=== PATIENT | male | born 1965 | race Caucasian/White ===

== ENCOUNTER 2023-05-14 02:57 | Outpatient (RCR) | payer OTHER, SELFPAY ==
[2023-04-23] MEDS: Heparin 500 UNITS/5 ML SYRINGE (08:07)
[2023-04-23] MEDS: Normal Saline Flush 10 ML SYR IVP (08:08)
[2023-04-23 08:27] LABS: Abs Immature Grans 0.05 10^3/uL (0.0-0.06); Absolute Basophil Count 0.02 10^3/uL (0.0-0.2); Absolute Eosinophil Count 0.08 10^3/uL (0.0-0.7); Absolute Monocyte Count 1.14 10^3/uL (0.1-0.8); Basophils % 0.2; Eosinophils % 0.7; HGB 15.2 g/dL (13.5-17.5); Immature Grans % 0.5; Lymphocytes % 13.1; MCH 32.1 pg (27.0-33.0); MCHC 33.8 % (32.0-36.0); MCV 95 fL (80-95); MPV 9.8 fL (8.0-11.0); Monocytes % 10.5; Platelet Count 362 10^3/uL (130-400); RBC 4.73 10^6/uL (4.36-5.78); RDW 11.8 % (11.8-14.1); RDW-SD 41.1 fL; WBC 10.88 10^3/uL (4.4-10.8)
[2023-04-23 08:29] LABS: Absolute Lymphocyte Count 1.43 10^3/uL (1.2-3.4); Absolute Neutrophil Count 8.16 10^3/uL (1.2-6.7)
[2023-04-23 08:45] LABS: ALT 71 U/L (16-63); AST 32 U/L (15-37); Albumin 3.5 g/dL (3.4-5.0); Alkaline Phosphatase 81 U/L (46-116); Anion Gap 8.8 mmol/L (3-11); BUN 18 mg/dL (7-18); Bilirubin, Total 0.6 mg/dL (0.2-1.0); CO2 30.2 mmol/L (21.0-32.0); CREATININE 0.8 mg/dL (0.70-1.30); Calcium 9.7 mg/dL (8.5-10.1); Chloride 98 mmol/L (98-107); Estimated GFR 101.95 (mL/min/1.73m2); Glucose 99 mg/dL (74-106); Magnesium 2.2 mg/dL (1.8-2.4); Potassium 3.9 mmol/L (3.5-5.1); Sodium 137 mmol/L (136-145); Total Protein 7.6 g/dL (6.4-8.2)
[2023-04-30] MEDS: Normal Saline Flush 10 ML SYR IVP (13:28)
[2023-04-30] MEDS: Heparin 500 UNITS/5 ML SYRINGE IV (13:28)
[2023-04-30 14:03] LABS: Abs Immature Grans 0.04 10^3/uL (0.0-0.06); Absolute Basophil Count 0.03 10^3/uL (0.0-0.2); Absolute Eosinophil Count 0.11 10^3/uL (0.0-0.7); Absolute Lymphocyte Count 1.01 10^3/uL (1.2-3.4); Absolute Monocyte Count 0.93 10^3/uL (0.1-0.8); Absolute Neutrophil Count 6.63 10^3/uL (1.2-6.7); Basophils % 0.3; Eosinophils % 1.3; HCT 39.3 % (40.0-50.0); HGB 12.9 g/dL (13.5-17.5); Immature Grans % 0.5; Lymphocytes % 11.5; MCH 31.5 pg (27.0-33.0); MCHC 32.8 % (32.0-36.0); MCV 96 fL (80-95); MPV 9.6 fL (8.0-11.0); Monocytes % 10.6; Neutrophils % 75.8; Platelet Count 308 10^3/uL (130-400); RDW 11.9 % (11.8-14.1); RDW-SD 41.4 fL; WBC 8.75 10^3/uL (4.4-10.8)
[2023-04-30 14:19] LABS: ALT 76 U/L (16-63); AST 22 U/L (15-37); Albumin 3.1 g/dL (3.4-5.0); Alkaline Phosphatase 88 U/L (46-116); Anion Gap 6.7 mmol/L (3-11); BUN 23 mg/dL (7-18); Bilirubin, Total 0.4 mg/dL (0.2-1.0); CO2 28.3 mmol/L (21.0-32.0); CREATININE 0.8 mg/dL (0.70-1.30); Calcium 9.4 mg/dL (8.5-10.1); Chloride 98 mmol/L (98-107); Estimated GFR 101.95 (mL/min/1.73m2); Glucose 110 mg/dL (74-106); Magnesium 2.1 mg/dL (1.8-2.4); Potassium 4.2 mmol/L (3.5-5.1); Sodium 133 mmol/L (136-145); Total Protein 7.1 g/dL (6.4-8.2)
[2023-05-07] MEDS: Normal Saline Flush 10 ML SYR IVP (13:26)
[2023-05-07] MEDS: Heparin 500 UNITS/5 ML SYRINGE IV (13:27)
[2023-05-07 13:41] LABS: Abs Immature Grans 0.03 10^3/uL (0.0-0.06); Absolute Basophil Count 0.02 10^3/uL (0.0-0.2); Absolute Eosinophil Count 0.05 10^3/uL (0.0-0.7); Absolute Lymphocyte Count 0.62 10^3/uL (1.2-3.4); Absolute Monocyte Count 0.63 10^3/uL (0.1-0.8); Absolute Neutrophil Count 4.97 10^3/uL (1.2-6.7); Basophils % 0.3; Eosinophils % 0.8; HCT 36.8 % (40.0-50.0); HGB 12.2 g/dL (13.5-17.5); Immature Grans % 0.5; Lymphocytes % 9.8; MCH 31.6 pg (27.0-33.0); MCHC 33.2 % (32.0-36.0); MCV 95 fL (80-95); MPV 9.2 fL (8.0-11.0); Neutrophils % 78.6; Platelet Count 278 10^3/uL (130-400); RBC 3.86 10^6/uL (4.36-5.78); RDW 11.9 % (11.8-14.1); RDW-SD 41.2 fL; WBC 6.32 10^3/uL (4.4-10.8)
[2023-05-07 14:44] LABS: ALT 51 U/L (16-63); AST 16 U/L (15-37); Alkaline Phosphatase 85 U/L (46-116); Anion Gap 4.6 mmol/L (3-11); BUN 23 mg/dL (7-18); Bilirubin, Total 0.3 mg/dL (0.2-1.0); CO2 29.4 mmol/L (21.0-32.0); CREATININE 0.8 mg/dL (0.70-1.30); Calcium 9.5 mg/dL (8.5-10.1); Chloride 100 mmol/L (98-107); Estimated GFR 101.95 (mL/min/1.73m2); Glucose 151 mg/dL (74-106); Magnesium 2.1 mg/dL (1.8-2.4); Potassium 4.1 mmol/L (3.5-5.1); Sodium 134 mmol/L (136-145); Total Protein 7.2 g/dL (6.4-8.2)
[2023-05-14] MEDS: Heparin 500 UNITS/5 ML SYRINGE IV (07:52)
[2023-05-14] MEDS: Normal Saline Flush 10 ML SYR IVP (07:52)
[2023-05-14 07:59] LABS: Abs Immature Grans 0.01 10^3/uL (0.0-0.06); Absolute Basophil Count 0.02 10^3/uL (0.0-0.2); Absolute Eosinophil Count 0.08 10^3/uL (0.0-0.7); Absolute Lymphocyte Count 0.55 10^3/uL (1.2-3.4); Absolute Monocyte Count 0.49 10^3/uL (0.1-0.8); Basophils % 0.4; Eosinophils % 1.5; HCT 35.1 % (40.0-50.0); HGB 11.7 g/dL (13.5-17.5); Immature Grans % 0.2; Lymphocytes % 10.1; MCH 32.3 pg (27.0-33.0); MCHC 33.3 % (32.0-36.0); MCV 97 fL (80-95); MPV 8.9 fL (8.0-11.0); Neutrophils % 78.8; Platelet Count 219 10^3/uL (130-400); RBC 3.62 10^6/uL (4.36-5.78); RDW 12.3 % (11.8-14.1); RDW-SD 42.8 fL; WBC 5.45 10^3/uL (4.4-10.8)
[2023-05-14 08:12] LABS: ALT 36 U/L (16-63); AST 13 U/L (15-37); Alkaline Phosphatase 81 U/L (46-116); Anion Gap 9.4 mmol/L (3-11); BUN 23 mg/dL (7-18); Bilirubin, Total 0.4 mg/dL (0.2-1.0); CO2 29.6 mmol/L (21.0-32.0); CREATININE 0.8 mg/dL (0.70-1.30); Calcium 9.4 mg/dL (8.5-10.1); Chloride 103 mmol/L (98-107); Estimated GFR 101.95 (mL/min/1.73m2); Glucose 113 mg/dL (74-106); Sodium 142 mmol/L (136-145); Total Protein 6.9 g/dL (6.4-8.2)
== END 2023-05-15 23:59 | disposition home or self-care (01) ==
LOC: INF 02:57
PROVIDERS: Visit Provider Internal Medicine Hematology & Oncology
DX: C76.0 Malignant neoplasm of head, face and neck (principal); Z45.2 Encounter for adjustment and management of vascular access device
CPT/HCPCS: 36591; 80053; 83735; 85025

== ENCOUNTER 2023-06-13 02:57 | Outpatient (RCR) | payer OTHER, SELFPAY ==
[2023-05-21 08:02] LABS: Abs Immature Grans 0.01 10^3/uL (0.0-0.06); Absolute Basophil Count 0.02 10^3/uL (0.0-0.2); Absolute Eosinophil Count 0.06 10^3/uL (0.0-0.7); Absolute Lymphocyte Count 0.43 10^3/uL (1.2-3.4); Absolute Monocyte Count 0.37 10^3/uL (0.1-0.8); Absolute Neutrophil Count 3.47 10^3/uL (1.2-6.7); Basophils % 0.5; Eosinophils % 1.4; HCT 33.5 % (40.0-50.0); HGB 11.4 g/dL (13.5-17.5); Immature Grans % 0.2; Lymphocytes % 9.9; MCH 32.9 pg (27.0-33.0); MCV 97 fL (80-95); MPV 8.9 fL (8.0-11.0); Monocytes % 8.5; Neutrophils % 79.5; Platelet Count 250 10^3/uL (130-400); RBC 3.46 10^6/uL (4.36-5.78); RDW 12.9 % (11.8-14.1); RDW-SD 43.5 fL; WBC 4.36 10^3/uL (4.4-10.8)
[2023-05-21 08:22] LABS: ALT 34 U/L (16-63); AST 13 U/L (15-37); Albumin 2.8 g/dL (3.4-5.0); Alkaline Phosphatase 70 U/L (46-116); BUN 22 mg/dL (7-18); Bilirubin, Total 0.3 mg/dL (0.2-1.0); CREATININE 0.7 mg/dL (0.70-1.30); Calcium 8.8 mg/dL (8.5-10.1); Chloride 103 mmol/L (98-107); Estimated GFR 106.14 (mL/min/1.73m2); Glucose 122 mg/dL (74-106); Magnesium 1.8 mg/dL (1.8-2.4); Potassium 3.7 mmol/L (3.5-5.1); Sodium 138 mmol/L (136-145); Total Protein 6.5 g/dL (6.4-8.2)
[2023-05-21] MEDS: Heparin 500 UNITS/5 ML SYRINGE IV (08:32)
[2023-05-21] MEDS: Normal Saline Flush 10 ML SYR IVP (08:33)
[2023-05-28] MEDS: Normal Saline Flush 10 ML SYR IVP (08:44)
[2023-05-28] MEDS: Heparin 500 UNITS/5 ML SYRINGE IV (08:45)
[2023-05-28 08:55] LABS: Abs Immature Grans 0.01 10^3/uL (0.0-0.06); Absolute Basophil Count 0.02 10^3/uL (0.0-0.2); Absolute Eosinophil Count 0.04 10^3/uL (0.0-0.7); Absolute Lymphocyte Count 0.39 10^3/uL (1.2-3.4); Absolute Neutrophil Count 2.19 10^3/uL (1.2-6.7); Basophils % 0.7; Eosinophils % 1.4; HCT 30.8 % (40.0-50.0); HGB 10.3 g/dL (13.5-17.5); Immature Grans % 0.3; Lymphocytes % 13.2; MCH 32.8 pg (27.0-33.0); MCHC 33.4 % (32.0-36.0); MCV 98 fL (80-95); MPV 8.4 fL (8.0-11.0); Monocytes % 10.2; Neutrophils % 74.2; Platelet Count 210 10^3/uL (130-400); RBC 3.14 10^6/uL (4.36-5.78); RDW 13.8 % (11.8-14.1); RDW-SD 46.8 fL; WBC 2.95 10^3/uL (4.4-10.8)
[2023-05-28 09:08] LABS: ALT 32 U/L (16-63); AST 15 U/L (15-37); Alkaline Phosphatase 79 U/L (46-116); Anion Gap 6.4 mmol/L (3-11); BUN 23 mg/dL (7-18); Bilirubin, Total 0.3 mg/dL (0.2-1.0); CO2 30.6 mmol/L (21.0-32.0); CREATININE 0.7 mg/dL (0.70-1.30); Calcium 9.2 mg/dL (8.5-10.1); Chloride 102 mmol/L (98-107); Estimated GFR 105.49 (mL/min/1.73m2); Glucose 125 mg/dL (74-106); Magnesium 1.8 mg/dL (1.8-2.4); Potassium 4.3 mmol/L (3.5-5.1); Sodium 139 mmol/L (136-145); Total Protein 6.8 g/dL (6.4-8.2)
[2023-06-13] MEDS: Heparin 500 UNITS/5 ML SYRINGE IV (08:05)
[2023-06-13] MEDS: Normal Saline Flush 10 ML SYR IVP (08:05)
[2023-06-13 08:59] LABS: Abs Immature Grans 0.03 10^3/uL (0.0-0.06); Absolute Basophil Count 0.03 10^3/uL (0.0-0.2); Absolute Eosinophil Count 0.02 10^3/uL (0.0-0.7); Absolute Lymphocyte Count 0.44 10^3/uL (1.2-3.4); Absolute Monocyte Count 0.58 10^3/uL (0.1-0.8); Absolute Neutrophil Count 3.94 10^3/uL (1.2-6.7); Basophils % 0.6; Eosinophils % 0.4; HGB 9.7 g/dL (13.5-17.5); Immature Grans % 0.6; Lymphocytes % 8.7; MCH 33.9 pg (27.0-33.0); MCHC 33.4 % (32.0-36.0); MCV 101 fL (80-95); Monocytes % 11.5; Neutrophils % 78.2; Platelet Count 263 10^3/uL (130-400); RBC 2.86 10^6/uL (4.36-5.78); RDW 16.8 % (11.8-14.1); RDW-SD 60.2 fL; WBC 5.04 10^3/uL (4.4-10.8)
[2023-06-13 09:23] LABS: ALT 18 U/L (16-63); AST 11 U/L (15-37); Albumin 3.1 g/dL (3.4-5.0); Alkaline Phosphatase 75 U/L (46-116); Anion Gap 6.8 mmol/L (3-11); BUN 25 mg/dL (7-18); Bilirubin, Total 0.2 mg/dL (0.2-1.0); CO2 29.2 mmol/L (21.0-32.0); CREATININE 0.7 mg/dL (0.70-1.30); Calcium 9.4 mg/dL (8.5-10.1); Chloride 104 mmol/L (98-107); Estimated GFR 105.49 (mL/min/1.73m2); Glucose 136 mg/dL (74-106); Sodium 140 mmol/L (136-145); TSH 1.76 uIU/mL (0.36-3.74); Total Protein 6.9 g/dL (6.4-8.2)
== END 2023-06-14 23:59 | disposition home or self-care (01) ==
LOC: INF 02:57
PROVIDERS: Visit Provider Internal Medicine Hematology & Oncology
DX: C76.0 Malignant neoplasm of head, face and neck (principal); Z45.2 Encounter for adjustment and management of vascular access device
CPT/HCPCS: 36591; 80053; 83735; 84443; 85025

== ENCOUNTER → 2023-06-29 00:42 | Outpatient (CLI) | payer OTHER, SELFPAY ==
[2023-06-29] MEDS: Barium Sulfate 700 MG TAB PO (09:25)
[2023-06-29] MEDS: Barium Sulfate Oral Paste 40% W/V 230 ML TUBE PO (09:26)
[2023-06-29] MEDS: Barium Sulfate 81% w/w for Oral Suspension 148 GM BTL PO (09:27)
[2023-06-29] MEDS: Barium Sulfate 40% W/V 240 ML BTL PO (09:46)
--- NOTE | 2023-06-29 09:50 | DI.RAD_ITS ---
Exam(s) RF MODIFIED SPEECH BA SWALLOW TECHNIQUE: Modified barium swallow was performed in conjunction with speech pathology. CONTRAST MATERIAL: Multiple consistencies of oral barium contrast were administered. COMPARISON: No exams were available for comparison FINDINGS: Note that this is not a dedicated esophagram, distal esophagus not evaluated. There was laryngeal penetration with thin and thick liquid. No richie aspiration. Mild vallecular re sidue. Speech pathology report to follow. IMPRESSION: Laryngeal penetration with thin and thick liquid. RADIATION DOSE DELIVERED: norbert Yang=20.5 mGy
--- NOTE | 2023-06-29 09:53 | ST.MBS ---
Date of Service Date of service: 06/29/23 Time of Service: 09:53 Modified Barium Swallow Study Findings: Video fluoroscopic Swallowing Evaluation (VFSE) / Modified Barium Swallow Study (MBSS) Speech Language Pathology Report Patient referred for VFSE/MBSS from Dr. Pierre given recently completed chemo-radiation treatment for oropharyngeal cancer. 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 He had a feeding tube placed at the beginning of treatment and continues to use this. Toward the end of his treatment he was largely reliant on the tube feeds for his nutrition secondary to taste changes, pain, and difficulty swallowing but did continue to take liquids by mouth. It has been several weeks since he finished his last treatment and his mucositis symptoms have started to improve. Continues with dry mouth. He reports primarily struggling at this time with solid foods, feeling things don't go down all the way and need to be coughed up. Continues with notable anxiety surrounding solid PO intake. IMPRESSIONS: Donnie presents with overall mild or mild-moderate dysphagia at this time, characterized most significantly by pharyngeal residue (vallecular>pyriform) due to reduced vs absent posterior pharyngeal wall stripping wave and to a lesser degree, reduced tongue base retraction and mild reduced epiglottic inversion. Also noting abnormalities at the level of the CP causing reduced flow, especially for solid textures, through the UES. He remains with fairly prompt pharyngeal initiation and good hyo-laryngeal movement. Airway protection is largely adequate with strategies in place for thin liquids and puree/solids. No aspiration occurred. Only scant/mild penetration with larger volumes resulting in trace laryngeal residue which does not descend to the level of vocal cords and can be cleared with occasional throat clear. Barriers to full PO intake at this time include low efficiency with more dense textures, and patient discomfort, anxiety, and fatigue with PO intake. Patient appears to be at low risk for potential aspiration PNA and/or pulmonary compromise and mild risk for malnutrition, low risk for dehydration. Diet modification is indicated; non-oral nutrition is indicated, though likely to return to full PO intake without significant delay. Swallow prognosis is good-fair given: Positive prognostic factors: Age, Severity, Time since onset, Motivation, Family/caregiver support, Cognitive status, Negative prognostic factors: Relative dose of Chemotherapy and/or radiation treatment Ancillary tests: May consider EGD/Upper GI Endoscopy if patient continues to experience significant issues over the next several months. RECOMMENDATIONS: Diet Texture Recommendation:? IDDSI LEVEL SOLIDS 6-Soft & Bite-Sized Solids with supplemental enterel feeding for now LIQUIDS 0-Thin Liquids Please see further details at?[email or web address] MEDICATIONS Whole with 0-Thin Liquids or 4-Puree Diet texture modification is per patient's preference; please adjust diet textures at patient's discretion & collaboration with care team. Do not alter medications (e.g., cut)? without advice from your MD or pharmacist. Risk Management Strategies:? Behavioral reflux precautions, including upright position during + 90 mins after meals. Small bites, approx [id number] Very small sips, approx 5mL / teaspoon Alternate solids/liquids as able Multiple swallows per bolus to encourage clearance of pharyngeal stasis/residue Control risk factors for aspiration pneumonia via (a) thorough oral hygiene & (b) maintaining physical mobility as tolerated PLAN: Therapy: Recommend subsequent outpatient session with [facility] to review results of today's exam and develop treatment plan as appropriate (patient is followed via [facility] through [facility] [place]). Follow-up exam: Repeat MBSS May be indicated upon return to [place] in several months pending progress at that point. ----- OBJECTIVE Videofluoroscopic Swallow Evaluation (VFSE/MBSS) was conducted in the lateral projection by Speech-Language Pathologist, in collaboration with Radiologist, to evaluate oropharyngeal swallow function. Anatomic view under fluoroscopy: PO Barium Contrast Trials Oral barium water-soluble contrast was administered as follows: IDDSI Level 0 Varibar thin liquid (40% w/v) IDDSI Level 2 Varibar nectar thick/mildly thick liquid (40% w/v) IDDSI Level 4 Varibar pudding/pureed/extremely thick (40% w/v) IDDSI Level 7 Regular Solid: 1/2 dagoberto cracker coated in 3 mL Varibar pudding 13 mm barium tablet taken with Thin Liquids. MBSImP Component Scores: COMPONENT Scale SCORE 1 Lip closure (0-4) 0 Resulted in no labial escape 2 Hold Position (0-3) 0 Maintained a cohesive bolus between tongue to palatal seal 3 Bolus Preparation (0-4) 0 Resulted in timely and efficient chewing and mashing 4 Bolus Transport (0-4) 0 Was with brisk tongue motion 5 Oral Residue (0-4) 2 Was a collection on oral structures 6 Swallow Initiation (0-4) 1 Occurred when the bolus head was in valleculae 7 Soft Palate Elevation (0-4) 0 Resulted in no bolus between soft palate and the pharyngeal wall 8 Laryngeal Elevation (0-3) 1 Was decreased with partial superior movement of thyroid cartilage/partial approximation of arytenoids to epiglottic petiole 9 Anterior Hyoid Motion (0-2) 0 Demonstrated complete anterior movement 10 Epiglottic Movement (0-2) 1 Resulted in partial inversion 11 Laryngeal Closure (0-2) 1 Was incomplete with narrow a column of air /contrast in laryngeal vestibule 12 Pharyngeal Stripping Wave (0-2) 2 Was absent 13 Pharyngeal Contraction (0-3) NA 14 PES Opening (0-3) 1 Demonstrated partial distension/partial duration, with partial obstruction of flow 15 Tongue Base Retraction (0-4) 2 Allowed a narrow column of contrast or air between the retracted tongue base and the posterior pharyngeal wall 16 Pharyngeal Residue (0-4) 2 Was a collection of residue within or on pharyngeal structures 17 Esophageal Clearance (0-4) NA Results: COMPONENT Scale SCORE 1 Oral Score (0-18) 3 2 Pharyngeal Score (0-29) 10 3 Esophageal Score (0-4) 0 Penetration-Aspiration Scale: COMPONENT Scale SCORE 1 Thin liquid (1-8) 3 Contrast entered the airway, remained above the vocal folds, and was not ejected from the airway. 2 Mexican [place] thick (1-8) 2 Contrast entered the airway, remained above the vocal folds, and was ejected from the airway. 3 Honey thick (1-8) NA 4 Pudding thick (1-8) 1 Contrast did not enter the airway 5 Cookie (1-8) 1 Contrast did not enter the airway Functional Oral Intake Scale: COMPONENT Scale SCORE 1 Pre-Study (1-7) 3 Tube supplements with consistent oral intake 2 Post-Study (1-7) 3 Tube supplements with consistent oral intake DIGEST: COMPONENT Scale SCORE 1 Thin Max PAS (1-8) 3 Contrast entered the airway, remained above the vocal folds, and was not ejected from the airway. 2 Mexican [place] Max PAS (1-8) 2 Contrast entered the airway, remained above the vocal folds, and was ejected from the airway. 3 Honey Max PAS (1-8) NA 4 Liquid Max PAS (1-8) 3 Maximum PAS Score over all liquid trials 5 Liquid Max Residue (0-3) 0 below 10% 6 Pudding Max PAS (1-8) 1 Contrast did not enter the airway 7 Pudding Max Residue (0-3) 1 10 - 49% 8 Cracker Max PAS (1-8) 1 Contrast did not enter the airway 9 Cracker Max Residue (0-3) 2 50 - 90% 10 Frequency if PAS >= 3 (0-3) 0 Single event 11 Amount if PAS >= 5 (0-1) 0 Not gross Results: COMPONENT Scale SCORE 1 SAFETY GRADE (0-4) 0 Safety grade for swallowing based on patterns of aspiration or laryngeal penetration 2 EFFICIENCY GRADE (0-4) 2 Efficiency grade of swallowing based on patterns of pharyngeal residue 3 DIGEST (0-4) 1 Severity grade of pharyngeal dysphagia: 0 - Normal, 1 - Mild, 2 - Moderate, 3 - Severe, 4 - Life threatening 4 Max Exam PAS (1-8) 3 Maximum PAS Score over all bolus trials 5 Max Exam Residue (0-3) 2 Maximum Exam Residue over all bolus trials Trialed Compensatory Strategies & Outcome: Maneuvers Successful (+) Unsuccessful (-) Postures Successful (+) Unsuccessful (-) 3 second Preparatory Set? ?+/- Chin Tuck Posture? ? Cough? ? Posterior Head tilt? Reflexive? Cued? Throat Clear? ? Head Tilt to? Reflexive? Left? Cued? ?+ ? Right? ? Saliva swallow? ?+ Head Turn/Rotate to? ? Supraglottic Swallow ? Left? ? Super-supraglottic Swallow? Right? ? Bolus Modifications Successful (+) Unsuccessful (-) Delivery/Alternating Consistencies ? Follow with Liquid Wash + ? Follow with Solid Bolus? Delivery/Via Straw? ? Reduced Volume? ?+ Reduced Rate of Intake? ?+ Increased Viscosity? ?+/- Other:?? ? Thank you for allowing us to take part in this patient's care. Please feel free to contact the [facility] Speech Language Pathology Department with any questions/concerns. Coding CPT Codes MOTION FLUOROSCOPY/SWALLOW - [id number] ([id number])
== END ==
PROVIDERS: Visit Provider Preventive Medicine Undersea and Hyperbaric Medicine
DX: C10.9 Malignant neoplasm of oropharynx, unspecified (principal); R13.13 Dysphagia, pharyngeal phase
CPT/HCPCS: 92526; 92611; 74221

== ENCOUNTER 2023-12-03 09:22 | Outpatient (RCR) | payer OTHER, SELFPAY ==
[2023-12-03 10:01] LABS: Abs Immature Grans 0.02 10^3/uL (0.0-0.06); Absolute Basophil Count 0.03 10^3/uL (0.0-0.2); Absolute Eosinophil Count 0.08 10^3/uL (0.0-0.7); Absolute Lymphocyte Count 0.85 10^3/uL (1.2-3.4); Absolute Monocyte Count 0.37 10^3/uL (0.1-0.8); Basophils % 0.7 %; Eosinophils % 1.8 %; HGB 13.6 g/dL (13.5-17.5); Immature Grans % 0.5 %; Lymphocytes % 19.5 %; MCH 32.9 pg (27.0-33.0); MCHC 32.4 % (32.0-36.0); MCV 102 fL (80-95); MPV 9.4 fL (8.0-11.0); Monocytes % 8.5 %; Platelet Count 198 10^3/uL (130-400); RBC 4.13 10^6/uL (4.36-5.78); RDW 13.8 % (11.8-14.1); RDW-SD 52.4 fL; WBC 4.35 10^3/uL (4.4-10.8)
[2023-12-03 10:17] LABS: ALT 22 U/L (16-63); AST 13 U/L (15-37); Albumin 3.8 g/dL (3.4-5.0); Alkaline Phosphatase 50 U/L (46-116); Anion Gap 4.6 mmol/L (3-11); BUN 12 mg/dL (7-18); Bilirubin, Total 0.7 mg/dL (0.2-1.0); CO2 32.4 mmol/L (21.0-32.0); CREATININE 0.9 mg/dL (0.70-1.30); Calcium 9.2 mg/dL (8.5-10.1); Chloride 108 mmol/L (98-107); Estimated GFR 97.78 (mL/min/1.73m2); Glucose 79 mg/dL (74-106); Magnesium 2.1 mg/dL (1.8-2.4); Potassium 3.8 mmol/L (3.5-5.1); Sodium 145 mmol/L (136-145)
[2023-12-03 11:21] LABS: TSH 13.49 uIU/Ml (0.36-3.74)
== END 2023-12-14 23:59 | disposition home or self-care (01) ==
LOC: INF 09:22
PROVIDERS: Internal Medicine Hematology & Oncology; Visit Provider Nurse Practitioner
DX: C76.0 Malignant neoplasm of head, face and neck (principal); C10.9 Malignant neoplasm of oropharynx, unspecified
CPT/HCPCS: 36415; 80053; 83735; 84443; 85025

== ENCOUNTER 2024-06-09 01:53 | Outpatient (RCR) | payer OTHER, SELFPAY ==
[2024-05-19] MEDS: Normal Saline Flush 10 ML SYR IVP (08:48)
[2024-05-19 09:24] LABS: Abs Immature Grans 0.01 10^3/uL (0.0-0.06); Absolute Basophil Count 0.04 10^3/uL (0.0-0.2); Absolute Lymphocyte Count 0.64 10^3/uL (1.2-3.4); Absolute Monocyte Count 0.39 10^3/uL (0.1-0.8); Absolute Neutrophil Count 3.24 10^3/uL (1.2-6.7); Basophils % 0.9 %; Eosinophils % 2.3 %; HCT 41.4 % (40.0-50.0); HGB 13.6 g/dL (13.5-17.5); Immature Grans % 0.2 %; Lymphocytes % 14.5 %; MCH 32.6 pg (27.0-33.0); MCHC 32.9 % (32.0-36.0); MCV 99 fL (80-95); MPV 9.7 fL (8.0-11.0); Monocytes % 8.8 %; Neutrophils % 73.3 %; Platelet Count 176 10^3/uL (130-400); RBC 4.17 10^6/uL (4.36-5.78); RDW 12.8 % (11.8-14.1); RDW-SD 47.1 fL; WBC 4.42 10^3/uL (4.4-10.8)
[2024-05-19 09:56] LABS: ALT 20 U/L (16-63); AST 14 U/L (15-37); Albumin 3.8 g/dL (3.4-5.0); Alkaline Phosphatase 57 U/L (46-116); Anion Gap 8.9 mmol/L (3-11); BUN 19 mg/dL (7-18); Bilirubin, Total 0.68 mg/dL (0.2-1.0); CO2 28.1 mmol/L (21.0-32.0); CREATININE 0.9 mg/dL (0.70-1.30); Calcium 9.3 mg/dL (8.5-10.1); Chloride 109 mmol/L (98-107); Estimated GFR 97.78 (mL/min/1.73m2); Glucose 93 mg/dL (74-106); Potassium 4.1 mmol/L (3.5-5.1); Sodium 146 mmol/L (136-145); TSH 10.37 uIU/mL (0.36-3.74); Total Protein 7.2 g/dL (6.4-8.2)
[2024-05-19 10:15] LABS: FREE T4 0.74 ng/dL (0.76-1.46)
[2024-05-24] MEDS: Normal Saline Flush 10 ML SYR IVP (12:40)
[2024-05-26] MEDS: Normal Saline Flush 10 ML SYR IVP (10:04)
[2024-05-26 10:08] LABS: Abs Immature Grans 0.02 10^3/uL (0.0-0.06); Absolute Basophil Count 0.03 10^3/uL (0.0-0.2); Absolute Eosinophil Count 0.06 10^3/uL (0.0-0.7); Absolute Lymphocyte Count 0.57 10^3/uL (1.2-3.4); Absolute Monocyte Count 0.41 10^3/uL (0.1-0.8); Absolute Neutrophil Count 4.62 10^3/uL (1.2-6.7); Basophils % 0.5 %; Eosinophils % 1.1 %; HCT 40.7 % (40.0-50.0); HGB 13.6 g/dL (13.5-17.5); Immature Grans % 0.4 %; MCH 32.4 pg (27.0-33.0); MCHC 33.4 % (32.0-36.0); MCV 97 fL (80-95); MPV 9.3 fL (8.0-11.0); Monocytes % 7.2 %; Neutrophils % 80.8 %; Platelet Count 176 10^3/uL (130-400); RDW 12.2 % (11.8-14.1); RDW-SD 43.8 fL; WBC 5.71 10^3/uL (4.4-10.8)
[2024-05-26 11:08] LABS: ALT 20 U/L (16-63); AST 13 U/L (15-37); Albumin 3.8 g/dL (3.4-5.0); Alkaline Phosphatase 60 U/L (46-116); Anion Gap 8.8 mmol/L (3-11); BUN 19 mg/dL (7-18); Bilirubin, Total 0.75 mg/dL (0.2-1.0); CO2 27.2 mmol/L (21.0-32.0); CREATININE 0.9 mg/dL (0.70-1.30); Calcium 9.2 mg/dL (8.5-10.1); Chloride 106 mmol/L (98-107); Estimated GFR 97.17 (mL/min/1.73m2); FREE T4 0.84 ng/dL (0.76-1.46); Glucose 97 mg/dL (74-106); Potassium 4.1 mmol/L (3.5-5.1); Sodium 142 mmol/L (136-145); TSH 8.52 uIU/mL (0.36-3.74); Total Protein 7.4 g/dL (6.4-8.2)
[2024-06-09 09:06] LABS: Abs Immature Grans 0.02 10^3/uL (0.0-0.06); Absolute Basophil Count 0.03 10^3/uL (0.0-0.2); Absolute Eosinophil Count 0.07 10^3/uL (0.0-0.7); Absolute Monocyte Count 0.39 10^3/uL (0.1-0.8); Absolute Neutrophil Count 2.18 10^3/uL (1.2-6.7); Basophils % 0.9 %; HCT 39.2 % (40.0-50.0); HGB 12.7 g/dL (13.5-17.5); Immature Grans % 0.6 %; Lymphocytes % 22.9 %; MCH 32.2 pg (27.0-33.0); MCHC 32.4 % (32.0-36.0); MCV 100 fL (80-95); MPV 8.5 fL (8.0-11.0); Monocytes % 11.2 %; Neutrophils % 62.4 %; Platelet Count 141 10^3/uL (130-400); RBC 3.94 10^6/uL (4.36-5.78); RDW 13.2 % (11.8-14.1); RDW-SD 47.6 fL; WBC 3.49 10^3/uL (4.4-10.8)
[2024-06-09 09:41] LABS: ALT 31 U/L (16-63); AST 17 U/L (15-37); Albumin 3.8 g/dL (3.4-5.0); Alkaline Phosphatase 58 U/L (46-116); Anion Gap 5.1 mmol/L (3-11); BUN 15 mg/dL (7-18); Bilirubin, Total 0.52 mg/dL (0.2-1.0); CO2 29.9 mmol/L (21.0-32.0); CREATININE 0.8 mg/dL (0.70-1.30); Calcium 9.4 mg/dL (8.5-10.1); Chloride 110 mmol/L (98-107); Estimated GFR 100.69 (mL/min/1.73m2); FREE T4 1.24 ng/dL (0.76-1.46); Glucose 100 mg/dL (74-106); Sodium 145 mmol/L (136-145); TSH 1.47 uIU/mL (0.36-3.74); Total Protein 7.1 g/dL (6.4-8.2)
[2024-06-09] MEDS: Normal Saline Flush 10 ML SYR IVP (10:02)
== END 2024-06-14 23:59 | disposition home or self-care (01) ==
LOC: INF 01:53
PROVIDERS: Visit Provider Internal Medicine Hematology
DX: C10.9 Malignant neoplasm of oropharynx, unspecified (principal)
CPT/HCPCS: 36591; 80053; 96523; 84439; 84443; 85025

== ENCOUNTER 2024-06-30 12:42 | Outpatient (RCR) | payer OTHER, SELFPAY ==
[2024-06-30] MEDS: Normal Saline Flush 10 ML SYR IVP (12:27)
[2024-06-30 12:42] LABS: Absolute Basophil Count 0.02 10^3/uL (0.0-0.2); Absolute Eosinophil Count 0.06 10^3/uL (0.0-0.7); Absolute Lymphocyte Count 0.78 10^3/uL (1.2-3.4); Absolute Monocyte Count 0.44 10^3/uL (0.1-0.8); Absolute Neutrophil Count 1.56 10^3/uL (1.2-6.7); Basophils % 0.7 %; Eosinophils % 2.1 %; HCT 34.9 % (40.0-50.0); HGB 11.4 g/dL (13.5-17.5); Lymphocytes % 27.3 %; MCH 32.9 pg (27.0-33.0); MCHC 32.7 % (32.0-36.0); MCV 101 fL (80-95); MPV 8.9 fL (8.0-11.0); Monocytes % 15.4 %; Neutrophils % 54.5 %; Platelet Count 128 10^3/uL (130-400); RBC 3.46 10^6/uL (4.36-5.78); RDW 14.9 % (11.8-14.1); RDW-SD 54.5 fL; WBC 2.86 10^3/uL (4.4-10.8)
[2024-06-30 13:13] LABS: ALT 22 U/L (16-63); AST 15 U/L (15-37); Albumin 3.5 g/dL (3.4-5.0); Alkaline Phosphatase 56 U/L (46-116); Anion Gap 8.1 mmol/L (3-11); BUN 18 mg/dL (7-18); Bilirubin, Total 0.43 mg/dL (0.2-1.0); CO2 28.9 mmol/L (21.0-32.0); CREATININE 0.8 mg/dL (0.70-1.30); Calcium 8.7 mg/dL (8.5-10.1); Chloride 109 mmol/L (98-107); Estimated GFR 100.69 (mL/min/1.73m2); FREE T4 0.81 ng/dL (0.76-1.46); Glucose 96 mg/dL (74-106); Sodium 146 mmol/L (136-145); Total Protein 6.7 g/dL (6.4-8.2)
== END 2024-07-15 23:59 | disposition home or self-care (01) ==
LOC: INF 12:42
PROVIDERS: Visit Provider Internal Medicine Hematology
DX: C10.9 Malignant neoplasm of oropharynx, unspecified (principal); Z45.2 Encounter for adjustment and management of vascular access device
CPT/HCPCS: 36591; 80053; 84439; 84443; 85025

== ENCOUNTER 2024-08-11 02:13 | Outpatient (RCR) | payer OTHER, SELFPAY ==
[2024-07-21] MEDS: Normal Saline Flush 10 ML SYR IVP (10:06)
[2024-07-21 10:23] LABS: Abs Immature Grans 0.01 10^3/uL (0.0-0.06); Absolute Basophil Count 0.02 10^3/uL (0.0-0.2); Absolute Eosinophil Count 0.05 10^3/uL (0.0-0.7); Absolute Lymphocyte Count 0.66 10^3/uL (1.2-3.4); Absolute Monocyte Count 0.35 10^3/uL (0.1-0.8); Absolute Neutrophil Count 1.67 10^3/uL (1.2-6.7); Basophils % 0.7 %; Eosinophils % 1.8 %; HCT 35.7 % (40.0-50.0); HGB 11.8 g/dL (13.5-17.5); Immature Grans % 0.4 %; Lymphocytes % 23.9 %; MCH 34.3 pg (27.0-33.0); MCHC 33.1 % (32.0-36.0); MCV 104 fL (80-95); MPV 8.7 fL (8.0-11.0); Monocytes % 12.7 %; Neutrophils % 60.5 %; Platelet Count 134 10^3/uL (130-400); RBC 3.44 10^6/uL (4.36-5.78); RDW 16.9 % (11.8-14.1); RDW-SD 63.2 fL; WBC 2.76 10^3/uL (4.4-10.8)
[2024-07-21 10:48] LABS: ALT 21 U/L (16-63); AST 15 U/L (15-37); Albumin 3.4 g/dL (3.4-5.0); Alkaline Phosphatase 55 U/L (46-116); Anion Gap 5.7 mmol/L (3-11); BUN 12 mg/dL (7-18); Bilirubin, Total 0.57 mg/dL (0.2-1.0); CO2 30.3 mmol/L (21.0-32.0); CREATININE 0.9 mg/dL (0.70-1.30); Calcium 8.9 mg/dL (8.5-10.1); Chloride 109 mmol/L (98-107); Estimated GFR 97.17 (mL/min/1.73m2); FREE T4 0.54 ng/dL (0.76-1.46); Glucose 78 mg/dL (74-106); Sodium 145 mmol/L (136-145); Total Protein 6.9 g/dL (6.4-8.2)
[2024-07-28] MEDS: Normal Saline Flush 10 ML SYR IVP (09:24)
[2024-07-28 09:31] LABS: Abs Immature Grans 0.01 10^3/uL (0.0-0.06); Absolute Basophil Count 0.03 10^3/uL (0.0-0.2); Absolute Eosinophil Count 0.03 10^3/uL (0.0-0.7); Absolute Monocyte Count 0.38 10^3/uL (0.1-0.8); Absolute Neutrophil Count 2.09 10^3/uL (1.2-6.7); Basophils % 0.9 %; Eosinophils % 0.9 %; HCT 34.5 % (40.0-50.0); HGB 11.8 g/dL (13.5-17.5); Immature Grans % 0.3 %; Lymphocytes % 21.6 %; MCH 34.6 pg (27.0-33.0); MCHC 34.2 % (32.0-36.0); MCV 101 fL (80-95); MPV 8.9 fL (8.0-11.0); Monocytes % 11.7 %; Neutrophils % 64.6 %; Platelet Count 143 10^3/uL (130-400); RBC 3.41 10^6/uL (4.36-5.78); RDW 16.6 % (11.8-14.1); RDW-SD 61.5 fL; WBC 3.24 10^3/uL (4.4-10.8)
[2024-07-28 10:04] LABS: ALT 24 U/L (16-63); AST 15 U/L (15-37); Albumin 3.8 g/dL (3.4-5.0); Alkaline Phosphatase 59 U/L (46-116); Anion Gap 7.7 mmol/L (3-11); BUN 20 mg/dL (7-18); CO2 28.3 mmol/L (21.0-32.0); CREATININE 0.9 mg/dL (0.70-1.30); Calcium 9.2 mg/dL (8.5-10.1); Chloride 106 mmol/L (98-107); Estimated GFR 97.17 (mL/min/1.73m2); Glucose 97 mg/dL (74-106); Potassium 3.9 mmol/L (3.5-5.1); Sodium 142 mmol/L (136-145); TSH 32.12 uIU/mL (0.36-3.74)
[2024-08-04] MEDS: Normal Saline Flush 10 ML SYR IVP (09:13)
[2024-08-04 09:25] LABS: Abs Immature Grans 0.01 10^3/uL (0.0-0.06); Absolute Basophil Count 0.01 10^3/uL (0.0-0.2); Absolute Eosinophil Count 0.02 10^3/uL (0.0-0.7); Absolute Lymphocyte Count 0.66 10^3/uL (1.2-3.4); Absolute Monocyte Count 0.32 10^3/uL (0.1-0.8); Absolute Neutrophil Count 1.79 10^3/uL (1.2-6.7); Basophils % 0.4 %; Eosinophils % 0.7 %; HCT 33.2 % (40.0-50.0); HGB 11.1 g/dL (13.5-17.5); Immature Grans % 0.4 %; Lymphocytes % 23.5 %; MCH 34.7 pg (27.0-33.0); MCHC 33.4 % (32.0-36.0); MCV 104 fL (80-95); MPV 8.8 fL (8.0-11.0); Monocytes % 11.4 %; Neutrophils % 63.6 %; Platelet Count 150 10^3/uL (130-400); RDW 17.4 % (11.8-14.1); RDW-SD 64.1 fL; WBC 2.81 10^3/uL (4.4-10.8)
[2024-08-04 09:49] LABS: ALT 24 U/L (16-63); AST 17 U/L (15-37); Albumin 3.8 g/dL (3.4-5.0); Alkaline Phosphatase 56 U/L (46-116); Anion Gap 5.7 mmol/L (3-11); BUN 16 mg/dL (7-18); Bilirubin, Total 0.64 mg/dL (0.2-1.0); CO2 29.3 mmol/L (21.0-32.0); CREATININE 0.9 mg/dL (0.70-1.30); Calcium 9.1 mg/dL (8.5-10.1); Chloride 107 mmol/L (98-107); Estimated GFR 97.17 (mL/min/1.73m2); Glucose 111 mg/dL (74-106); Potassium 3.7 mmol/L (3.5-5.1); Sodium 142 mmol/L (136-145); TSH 35.06 uIU/mL (0.36-3.74)
[2024-08-11] MEDS: Normal Saline Flush 10 ML SYR IVP (12:34)
[2024-08-11 13:02] LABS: Abs Immature Grans 0.02 10^3/uL (0.0-0.06); Absolute Basophil Count 0.02 10^3/uL (0.0-0.2); Absolute Eosinophil Count 0.05 10^3/uL (0.0-0.7); Absolute Lymphocyte Count 0.67 10^3/uL (1.2-3.4); Absolute Monocyte Count 0.46 10^3/uL (0.1-0.8); Absolute Neutrophil Count 1.72 10^3/uL (1.2-6.7); Basophils % 0.7 %; Eosinophils % 1.7 %; HCT 34.3 % (40.0-50.0); HGB 11.3 g/dL (13.5-17.5); Immature Grans % 0.7 %; Lymphocytes % 22.8 %; MCH 35.4 pg (27.0-33.0); MCHC 32.9 % (32.0-36.0); MCV 108 fL (80-95); MPV 9.2 fL (8.0-11.0); Monocytes % 15.6 %; Neutrophils % 58.5 %; Platelet Count 121 10^3/uL (130-400); RBC 3.19 10^6/uL (4.36-5.78); RDW-SD 71.6 fL; WBC 2.94 10^3/uL (4.4-10.8)
[2024-08-11 13:36] LABS: ALT 25 U/L (16-63); AST 15 U/L (15-37); Albumin 3.5 g/dL (3.4-5.0); Alkaline Phosphatase 49 U/L (46-116); Anion Gap 5.5 mmol/L (3-11); BUN 18 mg/dL (7-18); Bilirubin, Total 0.58 mg/dL (0.2-1.0); CO2 29.5 mmol/L (21.0-32.0); CREATININE 0.8 mg/dL (0.70-1.30); Calcium 9.3 mg/dL (8.5-10.1); Chloride 110 mmol/L (98-107); Estimated GFR 100.69 (mL/min/1.73m2); Glucose 87 mg/dL (74-106); Sodium 145 mmol/L (136-145); TSH 32.71 uIU/mL (0.36-3.74)
== END 2024-08-15 23:59 | disposition home or self-care (01) ==
LOC: INF 02:13
PROVIDERS: Visit Provider Internal Medicine Hematology
DX: C10.9 Malignant neoplasm of oropharynx, unspecified (principal)
CPT/HCPCS: 36591; 80053; 84439; 84443; 85025

== ENCOUNTER 2024-09-01 01:47 | Outpatient (RCR) | payer OTHER, SELFPAY ==
[2024-09-01] MEDS: Normal Saline Flush 10 ML SYR IVP (10:25)
[2024-09-01 10:54] LABS: Abs Immature Grans 0.02 10^3/uL (0.0-0.06); Absolute Basophil Count 0.04 10^3/uL (0.0-0.2); Absolute Eosinophil Count 0.05 10^3/uL (0.0-0.7); Absolute Lymphocyte Count 0.94 10^3/uL (1.2-3.4); Absolute Monocyte Count 0.48 10^3/uL (0.1-0.8); Eosinophils % 1.2 %; HGB 12.1 g/dL (13.5-17.5); Immature Grans % 0.5 %; Lymphocytes % 23.3 %; MCH 36.2 pg (27.0-33.0); MCHC 32.7 % (32.0-36.0); MCV 111 fL (80-95); Monocytes % 11.9 %; Neutrophils % 62.1 %; Platelet Count 193 10^3/uL (130-400); RBC 3.34 10^6/uL (4.36-5.78); RDW 16.1 % (11.8-14.1); RDW-SD 67.2 fL; WBC 4.03 10^3/uL (4.4-10.8)
[2024-09-01 11:13] LABS: Diff Comment RBC Morph Reviewed; Macrocytosis 1+
[2024-09-01 11:22] LABS: ALT 26 U/L (16-63); AST 17 U/L (15-37); Albumin 3.9 g/dL (3.4-5.0); Alkaline Phosphatase 54 U/L (46-116); Anion Gap 4.7 mmol/L (3-11); BUN 20 mg/dL (7-18); Bilirubin, Total 0.61 mg/dL (0.2-1.0); CO2 29.3 mmol/L (21.0-32.0); CREATININE 0.9 mg/dL (0.70-1.30); Chloride 111 mmol/L (98-107); Estimated GFR 97.17 (mL/min/1.73m2); FREE T4 0.74 ng/dL (0.76-1.46); Glucose 85 mg/dL (74-106); Potassium 4.3 mmol/L (3.5-5.1); Sodium 145 mmol/L (136-145); TSH 28.69 uIU/mL (0.36-3.74); Total Protein 7.3 g/dL (6.4-8.2)
[2024-09-01 11:26] LABS: Calcium 9.3 mg/dL (8.5-10.1)
== END 2024-09-12 23:59 | disposition home or self-care (01) ==
LOC: INF 01:47
PROVIDERS: Visit Provider Internal Medicine Hematology
DX: C10.9 Malignant neoplasm of oropharynx, unspecified (principal)
CPT/HCPCS: 36591; 80053; 84439; 84443; 85025

== ENCOUNTER 2024-09-22 03:37 | Outpatient (RCR) | payer OTHER, SELFPAY ==
[2024-09-22] MEDS: Normal Saline Flush 10 ML SYR IVP (09:22)
[2024-09-22 09:44] LABS: Abs Immature Grans 0.01 10^3/uL (0.0-0.06); Absolute Basophil Count 0.03 10^3/uL (0.0-0.2); Absolute Eosinophil Count 0.09 10^3/uL (0.0-0.7); Absolute Lymphocyte Count 0.77 10^3/uL (1.2-3.4); Absolute Monocyte Count 0.41 10^3/uL (0.1-0.8); Basophils % 0.9 %; Eosinophils % 2.7 %; HCT 37.2 % (40.0-50.0); Immature Grans % 0.3 %; Lymphocytes % 23.3 %; MCH 35.8 pg (27.0-33.0); MCHC 32.3 % (32.0-36.0); MCV 111 fL (80-95); MPV 9.2 fL (8.0-11.0); Monocytes % 12.4 %; Neutrophils % 60.4 %; Platelet Count 189 10^3/uL (130-400); RBC 3.35 10^6/uL (4.36-5.78); RDW 13.2 % (11.8-14.1); RDW-SD 53.8 fL; WBC 3.31 10^3/uL (4.4-10.8)
[2024-09-22 10:14] LABS: ALT 19 U/L (16-63); AST 15 U/L (15-37); Albumin 3.6 g/dL (3.4-5.0); Alkaline Phosphatase 51 U/L (46-116); Anion Gap 6.2 mmol/L (3-11); BUN 19 mg/dL (7-18); Bilirubin, Total 0.5 mg/dL (0.2-1.0); CO2 29.8 mmol/L (21.0-32.0); CREATININE 0.9 mg/dL (0.70-1.30); Calcium 8.8 mg/dL (8.5-10.1); Chloride 111 mmol/L (98-107); Estimated GFR 97.17 (mL/min/1.73m2); Glucose 91 mg/dL (74-106); Sodium 147 mmol/L (136-145); Total Protein 6.7 g/dL (6.4-8.2)
[2024-09-22 18:29] LABS: T4, Free 0.9 ng/dL (0.8-2.2)
== END 2024-10-13 23:59 | disposition home or self-care (01) ==
LOC: INF 03:37
PROVIDERS: Visit Provider Internal Medicine Hematology
DX: C10.9 Malignant neoplasm of oropharynx, unspecified (principal)
CPT/HCPCS: 36591; 80053; 84439; 84443; 85025

== ENCOUNTER 2024-11-03 02:23 | Outpatient (RCR) | payer OTHER, SELFPAY ==
[2024-11-03 08:46] LABS: Abs Immature Grans 0.03 10^3/uL (0.0-0.06); Absolute Basophil Count 0.03 10^3/uL (0.0-0.2); Absolute Eosinophil Count 0.11 10^3/uL (0.0-0.7); Absolute Monocyte Count 0.46 10^3/uL (0.1-0.8); Absolute Neutrophil Count 3.28 10^3/uL (1.2-6.7); Basophils % 0.6 %; Eosinophils % 2.2 %; HCT 41.2 % (40.0-50.0); HGB 13.5 g/dL (13.5-17.5); Immature Grans % 0.6 %; Lymphocytes % 20.4 %; MCH 34.4 pg (27.0-33.0); MCHC 32.8 % (32.0-36.0); MCV 105 fL (80-95); MPV 9.1 fL (8.0-11.0); Monocytes % 9.4 %; Neutrophils % 66.8 %; Platelet Count 183 10^3/uL (130-400); RBC 3.92 10^6/uL (4.36-5.78); RDW 11.3 % (11.8-14.1); RDW-SD 43.5 fL; WBC 4.91 10^3/uL (4.4-10.8)
[2024-11-03 09:11] LABS: ALT 23 U/L (16-63); AST 14 U/L (15-37); Albumin 3.9 g/dL (3.4-5.0); Alkaline Phosphatase 57 U/L (46-116); Anion Gap 4.3 mmol/L (3-11); BUN 22 mg/dL (7-18); Bilirubin, Total 0.6 mg/dL (0.2-1.0); CO2 29.7 mmol/L (21.0-32.0); CREATININE 1.1 mg/dL (0.70-1.30); Calcium 9.6 mg/dL (8.5-10.1); Chloride 109 mmol/L (98-107); Estimated GFR 76.37 (mL/min/1.73m2); Glucose 90 mg/dL (74-106); Potassium 3.9 mmol/L (3.5-5.1); Sodium 143 mmol/L (136-145); Total Protein 7.4 g/dL (6.4-8.2)
[2024-11-03] MEDS: Normal Saline Flush 10 ML SYR IVP (09:30)
== END 2024-11-12 23:59 | disposition home or self-care (01) ==
LOC: INF 02:23
PROVIDERS: Visit Provider Internal Medicine Hematology
DX: C10.9 Malignant neoplasm of oropharynx, unspecified (principal); C76.0 Malignant neoplasm of head, face and neck; Z45.2 Encounter for adjustment and management of vascular access device
CPT/HCPCS: 36591; 80053; 84439; 84443; 85025

== ENCOUNTER 2024-12-01 02:58 | Outpatient (RCR) | payer OTHER, SELFPAY ==
[2024-11-17 10:12] LABS: Abs Immature Grans 0.02 10^3/uL (0.0-0.06); Absolute Basophil Count 0.01 10^3/uL (0.0-0.2); Absolute Lymphocyte Count 0.85 10^3/uL (1.2-3.4); Absolute Neutrophil Count 2.65 10^3/uL (1.2-6.7); Basophils % 0.2 %; Eosinophils % 2.5 %; HCT 39.8 % (40.0-50.0); HGB 12.8 g/dL (13.5-17.5); Immature Grans % 0.5 %; Lymphocytes % 21.1 %; MCH 33.9 pg (27.0-33.0); MCHC 32.2 % (32.0-36.0); MCV 105 fL (80-95); MPV 9.2 fL (8.0-11.0); Monocytes % 9.9 %; Neutrophils % 65.8 %; Platelet Count 201 10^3/uL (130-400); RBC 3.78 10^6/uL (4.36-5.78); RDW 11.6 % (11.8-14.1); RDW-SD 45.1 fL; WBC 4.03 10^3/uL (4.4-10.8)
[2024-11-17 10:39] LABS: ALT 25 U/L (16-63); AST 16 U/L (15-37); Albumin 3.6 g/dL (3.4-5.0); Alkaline Phosphatase 53 U/L (46-116); Anion Gap 5.5 mmol/L (3-11); BUN 20 mg/dL (7-18); Bilirubin, Total 0.6 mg/dL (0.2-1.0); CO2 29.5 mmol/L (21.0-32.0); CREATININE 0.9 mg/dL (0.70-1.30); Calcium 9.2 mg/dL (8.5-10.1); Chloride 108 mmol/L (98-107); Estimated GFR 97.17 (mL/min/1.73m2); Glucose 91 mg/dL (74-106); Sodium 143 mmol/L (136-145); TSH 5.33 uIU/mL (0.36-3.74); Total Protein 6.9 g/dL (6.4-8.2)
[2024-11-17] MEDS: Normal Saline Flush 10 ML SYR IVP (11:53)
== END 2024-12-13 23:59 | disposition home or self-care (01) ==
LOC: INF 02:58
PROVIDERS: Visit Provider Internal Medicine Hematology
DX: C10.9 Malignant neoplasm of oropharynx, unspecified (principal); Z45.2 Encounter for adjustment and management of vascular access device
CPT/HCPCS: 36591; 80053; 84439; 84443; 85025

== ENCOUNTER 2025-01-12 01:54 | Outpatient (RCR) | payer OTHER, SELFPAY ==
[2025-01-12 12:25] LABS: Abs Immature Grans 0.01 10^3/uL (0.0-0.06); Absolute Basophil Count 0.04 10^3/uL (0.0-0.2); Absolute Lymphocyte Count 1.23 10^3/uL (1.2-3.4); Absolute Monocyte Count 0.52 10^3/uL (0.1-0.8); Absolute Neutrophil Count 2.42 10^3/uL (1.2-6.7); Basophils % 0.9 %; Eosinophils % 8.7 %; HCT 38.2 % (40.0-50.0); HGB 12.3 g/dL (13.5-17.5); Immature Grans % 0.2 %; Lymphocytes % 26.6 %; MCH 31.7 pg (27.0-33.0); MCHC 32.2 % (32.0-36.0); MCV 99 fL (80-95); MPV 8.8 fL (8.0-11.0); Monocytes % 11.3 %; Neutrophils % 52.3 %; Platelet Count 221 10^3/uL (130-400); RBC 3.88 10^6/uL (4.36-5.78); RDW 13.9 % (11.8-14.1); RDW-SD 50.3 fL; WBC 4.62 10^3/uL (4.4-10.8)
[2025-01-12] MEDS: Normal Saline Flush 10 ML SYR IVP (12:40)
[2025-01-12 13:01] LABS: ALT 60 U/L (16-63); AST 23 U/L (15-37); Albumin 3.6 g/dL (3.4-5.0); Alkaline Phosphatase 77 U/L (46-116); Anion Gap 8.1 mmol/L (3-11); BUN 20 mg/dL (7-18); Bilirubin, Total 0.6 mg/dL (0.2-1.0); CO2 28.9 mmol/L (21.0-32.0); CREATININE 0.7 mg/dL (0.70-1.30); Calcium 9.2 mg/dL (8.5-10.1); Chloride 106 mmol/L (98-107); Estimated GFR 104.83 (mL/min/1.73m2); FREE T4 1.02 ng/dL (0.76-1.46); Glucose 105 mg/dL (74-106); Potassium 3.8 mmol/L (3.5-5.1); Sodium 143 mmol/L (136-145); TSH 5.94 uIU/mL (0.36-3.74); Total Protein 7.5 g/dL (6.4-8.2)
== END 2025-01-12 23:59 | disposition home or self-care (01) ==
LOC: INF 01:54
PROVIDERS: Visit Provider Internal Medicine Hematology
DX: C10.9 Malignant neoplasm of oropharynx, unspecified (principal); Z45.2 Encounter for adjustment and management of vascular access device
CPT/HCPCS: 36591; 80053; 84439; 84443; 85025